=== PATIENT | male | born 1970 | race Caucasian/White ===

== ENCOUNTER 2016-12-23 15:18 | Emergency (ER) | payer MEDICAID ==
[~2016-12-23] VITALS: Ht 177.8 cm; Wt 77.5 kg
[2016-12-23] MEDS ORDERED: KETOROLAC 30 MG/1 ML IM ONE (16:30)
[2016-12-23 16:59] LABS: BLOOD UREA NITROGEN 12 mg/dL (7-18)
[2016-12-23 17:05] LABS: IS PT STATUS REG ER OR PRE ER? YES
[2016-12-23] MEDS ORDERED: KETOROLAC 30 MG/1 ML ONE (19:31)
[2016-12-23 20:34] VITALS: BP 119/74
== END 2016-12-23 20:36 | disposition home or self-care (01) ==
LOC: ED 19:41
DX: M94.0 Chondrocostal junction syndrome [Tietze] (principal); R07.2 Precordial pain; F12.10 Cannabis abuse, uncomplicated
CPT/HCPCS: 36415; 71010; 80048; 82040; 84484; 85025; 93005; 96372; 99285; J1885